=== PATIENT | male | born 1980 | race Caucasian/White ===

== ENCOUNTER 2022-05-10 10:57 | Day surgery (SDC) | payer OTHER ==
[~2022-05-10] VITALS: Ht 180.3 cm; Wt 95.3 kg
[~2022-05-10 10:57] MED LIST: NS 1,000 ML IV ONE; VITMTA PO
[2022-05-10] MEDS ORDERED: propofoL 200 MG/20 ML VIAL As Ordered ONE (12:13)
[2022-05-10] MEDS ORDERED: LIDOCAINE 2% 100MG/5ML SDV (FOR ANES.) As Ordered ONE (12:13)
[2022-05-10 12:54] VITALS: BP 136/81
== END 2022-05-10 13:08 | disposition home or self-care (01) ==
LOC: M OPP 10:57
PROVIDERS: ATTEND Internal Medicine Gastroenterology
DX: K62.5 Hemorrhage of anus and rectum (principal); K64.0 First degree hemorrhoids; F17.228 Nicotine dependence, chewing tobacco, with other nicotine-induced disorders